=== PATIENT | male | born 1980 | race Two or more races ===

== ENCOUNTER 2019-05-02 10:13 | Emergency (ER) | payer OTHER ==
[~2019-05-02] VITALS: Ht 177.8 cm; Wt 81.6 kg
--- NOTE | 2019-05-02 10:24 | NUR ---
STELLA WANG C/O DIFFUSE ABDOMINAL PAIN W/ NAUSEA X 3 DAYS. PATIENT A/OX3, BREATHING EVEN AND UNLABORED, NO SOB NOTED, ATTACHED TO THE MONITOR. [employer] AT BEDSIDE. NEEDS ATTENDED.
[2019-05-02] MEDS ORDERED: ONDANSETRON 4 MG TAB.RAPDIS ONE (10:57)
[2019-05-02] MEDS ORDERED: CLONIDINE HCL 0.1MG/24H PTWK 1 EA PATCH TD SCH (11:00)
[2019-05-02] MEDS ORDERED: ONDANSETRON HCL 4 MG/5 ML SOLUTION PO ONE (11:00)
[2019-05-02 11:05] VITALS: BP 146/75
== END 2019-05-02 11:06 ==
LOC: ER 10:14
DX: F11.23 Opioid dependence with withdrawal (principal)
CPT/HCPCS: 99283; Q0162

== ENCOUNTER 2020-09-05 09:36 | Emergency (ER) | payer OTHER ==
[~2020-09-05] VITALS: Ht 175.3 cm; Wt 90.7 kg
[2020-09-05 09:40] VITALS: BP 125/93
--- NOTE | 2020-09-05 10:11 | NUR ---
SEEN AND EXAMINED BY DR ESCOBAR. MEDICALLY CLEARED. DISCHARGE IN STABLE CONDITION.
== END 2020-09-05 10:14 ==
LOC: ER 09:42
DX: F10.139 Alcohol abuse with withdrawal, unspecified (principal); Y90.9 Presence of alcohol in blood, level not specified

== ENCOUNTER 2025-03-29 09:44 | Emergency (ER) | payer OTHER ==
[~2025-03-29] VITALS: Ht 175.3 cm; Wt 106.6 kg
[2025-03-29 09:47] VITALS: BP 140/70; TEMP 97.9; O2SAT 99
== END 2025-03-29 09:59 | disposition left against medical advice (07) ==
LOC: ER 09:48
DX: T65.91XA Toxic effect of unspecified substance, accidental (unintentional), initial encounter (principal); Z53.21 Procedure and treatment not carried out due to patient leaving prior to being seen by health care provider; Y92.89 Other specified places as the place of occurrence of the external cause